=== PATIENT | male | born 1995 | race Caucasian/White ===

== ENCOUNTER 2021-11-02 19:04 | Emergency (ER) | payer MEDICAID ==
[~2021-11-02] VITALS: Ht 170.2 cm; Wt 95.0 kg
[2021-11-02 19:38] VITALS: BP 130/81
[2021-11-02] MEDS ORDERED: carbamide peroxide 15ml bottle LEFT EAR ONE (20:15)
== END 2021-11-02 20:39 | disposition home or self-care (01) ==
LOC: ER 19:04
DX: H66.21 Chronic atticoantral suppurative otitis media, right ear (principal)
CPT/HCPCS: 99282